=== PATIENT | female | born 1955 | race Two or more races ===

== ENCOUNTER 2018-12-26 22:50 | Emergency (ER) | payer SELFPAY ==
[~2018-12-26] VITALS: Ht 154.9 cm; Wt 61.2 kg
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
[2018-12-26] MEDS ORDERED: Neosporin Oint Ud Pkt TOP ONE (23:45)
[2018-12-26] MEDS ORDERED: HYDROcodone/Acetamin 5/325 tab PO ONE (23:45)
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
--- NOTE | 2018-12-27 00:45 | NUR ---
ED Nurse Note: Pt was sent down for X-ray.
--- NOTE | 2018-12-27 01:48 | NUR ---
ED Nurse Note: Pt returned from x-ray.
[2018-12-27] MEDS ORDERED: oxyCODONE HCL/Acetaminophen 5/325mg ORAL ONE (03:00)
[2018-12-27] MEDS ORDERED: IBUPROFEN600 MG ORAL (03:38)
[2018-12-27] MEDS ORDERED: TRAMADOL HCL50 MG ORAL (03:38)
[2018-12-27] MEDS ORDERED: TYLENOL325 MG ORAL (03:38)
[2018-12-27] MEDS ORDERED: Bacitracin Oint UD TOPIC ONE (03:51)
[2018-12-27] MEDS ORDERED: BACITRACIN15 GM TOPIC (04:11)
[2018-12-27 04:20] VITALS: BP 145/67
--- NOTE | 2018-12-27 04:20 | NUR ---
ER DISCHARGE NOTE: Patient is cleared to be discharged per Dr. Ledbetter. X-ray done, Meds given as ordered, splin was applied to left mid finger, walker was provided and Pt was able to ambulated well with walker. Pt is A/O x4 on room air with stable vital signs. Pt was given D/C and prescription instructions and was able to verbalize understanding. Pt ID band removed. Pt is able to ambulate well with walker and took all belongings. Accompanied by her family.
--- NOTE | 2018-12-27 10:54 | Diagnostic Imaging Report ---
Indication: Neck pain. Technique: Continuous helical imaging of the cervical spine was obtained transaxially from the skull base to the upper thoracic spine. 2-D coronal and sagittal reformatted images were obtained. Automatic Exposure Control was utilized. Total Dose length Product (DLP): 318.[address] Dose Index Volume (CTDIvol): 17.18 mGy Comparison: None Findings: There is no evidence of an acute fracture or malalignment. Atlantoaxial alignment appears normal. Height and configuration of the vertebral bodies and intervertebral discs are within normal limits. Uncovertebral joints and facets are unremarkable. There is minimal spurring at the C5-6 vertebral endplate anteriorly. There is mild narrowing of the C4-5 disc. There is no soft tissue swelling. Impression: No acute injury. The CT scanner at [facility] is accredited by the [employer] and the scans are performed using dose optimization techniques as appropriate to a performed exam including Automatic Exposure control.
--- NOTE | 2018-12-27 11:00 | Diagnostic Imaging Report ---
Indication: Headache Technique: Contiguous 5 mm thick transaxial imaging of the head obtained in a Siem[employer] Sensation [address] scanner. Soft tissue and bone windows generated. Automatic Exposure Control was utilized. Total Dose length Product (DLP): [address] Dose Index Volume (CTDIvol): 70.38 mGy Comparison: none Findings: The size and configuration of the cortical sulci, basal cisterns, and ventricles are within normal limits for age. There is no mass effect, midline shift, or edema identified. There is no evidence of acute hemorrhage or abnormal intra-axial or extra-axial fluid collections. The bones and soft tissues are unremarkable. Impression: No mass effect, edema or acute bleed. [facility] has communicated the preliminary results to the Emergency Department. Their findings are largely concordant with this report. The CT scanner at [facility] is accredited by the [employer] and the scans are performed using dose optimization techniques as appropriate to a performed exam including Automatic Exposure control.
--- NOTE | 2018-12-27 11:55 | Diagnostic Imaging Report ---
Indication: Back pain Comparison: None Findings: 3 views of the lumbar spine were obtained. The films are technically suboptimal. No obvious fracture identified. No obvious malalignment identified. Degenerative changes noted in the lower part of the lumbar spine with marginal endplate and facet spur formation. IMPRESSION: No obvious acute injury
--- NOTE | 2018-12-27 11:56 | Diagnostic Imaging Report ---
Indication: left hand pain. Comparison: None Findings: 3 views of the left hand were obtained. Normal alignment is demonstrated. No acute fractures, erosions, or periosteal reaction are seen. Soft tissues are unremarkable. Impression: No acute findings.
--- NOTE | 2018-12-27 11:57 | Diagnostic Imaging Report ---
Indication: Pain right ankle ankle pain/trauma Comparison: None Findings: 3 views of the right ankle obtained. No acute fracture, malalignment, periostitis, or osteochondral defects are identified. Soft tissues are unremarkable. Calcaneal spur noted plantar aspect. Impression: Negative examination
--- NOTE | 2018-12-27 21:54 | Cardiology Report ---
APPROVED REPORT EKG Measurement Heart [id number] Normal sinus rhythm Moderate voltage criteria for LVH, may be normal variant Nonspecific ST abnormality Abnormal ECG
== END 2018-12-27 04:20 | disposition home or self-care (01) ==
LOC: EMR 23:30
DX: S09.90XA Unspecified injury of head, initial encounter (principal); S90.01XA Contusion of right ankle, initial encounter; S60.031A Contusion of right middle finger without damage to nail, initial encounter; S30.0XXA Contusion of lower back and pelvis, initial encounter; S50.01XA Contusion of right elbow, initial encounter; S50.311A Abrasion of right elbow, initial encounter; S90.511A Abrasion, right ankle, initial encounter; W10.9XXA Fall (on) (from) unspecified stairs and steps, initial encounter; Y92.89 Other specified places as the place of occurrence of the external cause; I10 Essential (primary) hypertension; M54.2 Cervicalgia
CPT/HCPCS: 29130; 70450; 72020; 72125; 93005; 99284